=== PATIENT | male | born 1955 ===

== ENCOUNTER 2020-12-21 15:19 | Outpatient (CLI) | payer OTHER, MEDICARE ==
--- NOTE | 2020-12-21 17:03 | XRAY Report ---
PROCEDURE: Knee 4 View BILAT INDICATIONS: BILATERAL KNEE PX TECHNIQUE: 3 views of the bilateral knee(s) were acquired. COMPARISON: None. FINDINGS: Bones: No fractures or dislocations. No suspicious bony lesions. Tricompartmental bilateral knee j oint degeneration, severe involving the medial femoral tibial joints. Severe bilateral lateral patell ofemoral knee joint narrowing. Soft tissues: No joint effusion. No suspicious soft tissue calcifications. Right popliteal fossa c alcifications. IMPRESSION: Severe medial femoral tibial and patellofemoral knee Calcifications present within the right popliteal fossa which could be related to a Sheppard's cyst. Jodee nt degeneration bilaterally. Reviewed by: SHAKEEL Adams on 12/21/2020 5:02 PM PDT Approved by: Khai Schwab MD on 12/21/2020 5:02 PM PDT Station ID: [id number]
== END 2020-12-21 23:59 | disposition home or self-care (01) ==
LOC: DI.N 15:19
PROVIDERS: ATTEND Orthopaedic Surgery
DX: M17.0 Bilateral primary osteoarthritis of knee (principal); M25.861 Other specified joint disorders, right knee

== ENCOUNTER 2020-12-25 10:13 | Outpatient (CLI) | payer MEDICARE ==
--- NOTE | 2020-12-25 10:57 | CT Report ---
PROCEDURE: CHEST WO INDICATIONS: PULMONARY NODULE TECHNIQUE: Noncontrast images were acquired from the pulmonary apices to the posterior costophrenic angles. Mul tiplanar MIP reformats were then acquired. For radiation dose reduction, the following was used: au tomated exposure control, adjustment of mA and/or kV according to patient size. COMPARISON: None available. FINDINGS: Image quality: Excellent. Lungs and pleura: No focal consolidation. However, there are numerous scattered solid pulmonary nodul es including a 7 mm left upper lobe nodule (series 4, image 54) and 9 mm left lower lobe nodule (seri es 4 image 200). Multiple additional smaller nodules are scattered about the lungs. Also, in the infe rior aspect of the lateral right upper lobe, there are tree-in-bud nodules centered along a bronchova scular distribution. No pleural effusions or pneumothorax. Central and peripheral airways are patent and normal in caliber. Mediastinum: Heart size is normal. No pericardial effusion. Numerous enlarged mediastinal lymph nod es including a 1.3 cm lower paratracheal lymph node and 1.6 cm upper paratracheal lymph node. Thoraci c aorta and central pulmonary arteries are normal in size. Esophagus is normal in caliber. No hiata l hernia. Bones and chest wall: No suspicious bony lesions. No vertebral body compression fractures. No axil fabrice or supraclavicular adenopathy by size criteria. The thyroid is normal in size and there are no incidental findings. Abdomen: Visualized upper abdominal solid organs and bowel loops appear normal in the absence of con trast. IMPRESSION: 1. Numerous solid scattered pulmonary nodules measuring up to 9 mm. There are also tree-in-bud nodule s probably present in the inferior aspect of the right upper lobe. These nodules may represent sequel a of an infectious process/atypical respiratory infection. Recommend follow-up CT in approximately 3 months to exclude development of suspicious features. 2. Scattered enlarged mediastinal lymph nodes measuring up to 1.6 cm. Reviewed by: Lincoln Garrido on 12/25/2020 9:56 AM KATE Approved by: Linocln Garrido on 12/25/2020 9:56 AM KATE Station ID: [id number]
== END 2020-12-25 10:14 | disposition home or self-care (01) ==
LOC: DI 10:13
PROVIDERS: ATTEND Internal Medicine Critical Care Medicine
DX: D86.9 Sarcoidosis, unspecified (principal); R91.8 Other nonspecific abnormal finding of lung field; R59.0 Localized enlarged lymph nodes